=== PATIENT | female | born 1955 | race African-American/Black ===

== ENCOUNTER 2017-02-23 23:12 | Inpatient (IN) | payer MEDICARE, OTHER ==
[~2017-02-23] VITALS: Ht 158.8 cm; Wt 89.3 kg
--- NOTE | ~2017-02-23 | OR ---
Unit #: [id number] #: [id number] Patient: MILAN DAY [id number] [address] [address] [id number] I MR#: [id number] NAME: MILAN DAY ROOM: 467 Date of Procedure: 02/24/2017 Admission Date: 02/24/2017 Surgeon: Ethan Nava M.D. : 1955 Attending Physician: Ethan Nava M.D. Primary Care Physician: Rusty An M.D. OPERATIVE REPORT PREOPERATIVE DIAGNOSIS Bimalleolar equivalent fracture dislocation, right ankle. POSTOPERATIVE DIAGNOSIS Bimalleolar equivalent fracture dislocation, right ankle. PROCEDURE PERFORMED Open reduction and internal fixation of the lateral malleolus with a 6-hole one-third semitubular plate by [employer]. ANESTHESIA General. ESTIMATED BLOOD LOSS 50 mL. DESCRIPTION OF PROCEDURE The patient was brought to the operating room, given appropriate IV antibiotics, brought back to the operating room, given a general anesthetic. Tourniquet placed around the right thigh. The right leg was prepped and draped in a sterile fashion. Tourniquet was inflated to 250. A straight lateral skin incision was made. Subcutaneous dissected away. The fibula came into view. This was reduced and held in place with a clamp, and then the 6-hole one-third semitubular plate was positioned. Once this was in place, the 3.5 cortical screws were placed through the plate under C-arm control. C-arm showed appropriate reduction and good position of the hardware on AP and lateral views. The tourniquet was released. Hemostasis obtained. 20 mL of 0.5% plain Marcaine was injected into the soft tissues around the incision, and then the wound was closed using 0 Vicryl pop-off sutures in the subcu and enio in the skin. A sterile dressing applied and a posterior splint positioned. Dictated by... Gen Ramirez/rakan TD: 02/25/2017 10:40 JOB #: [id number] Unit #: [id number] #: [id number] Patient: MILAN DAY OPERATIVE REPORT Page 1 of 1 X Ethan Nava MD PROCEDURE OPERATIVE NOTE
--- NOTE | ~2017-02-23 | CR72 ---
[facility] A Service of [facility] & [facility] RADIOLOGY TEXT RESULTS PATIENT: MILAN DAY LOCATION: [place] [address]- : 55 UNIT #: [id number] AGE: [address]: Ethan Nava MD SEX: F ORDER DR: [id number] [facility] [address] [facility]. [place], [place] [address] [id number] I MR#: [id number] Acc #: [id number] NAME: MILAN DAY : 1955 SEX: F STUDY DATE/TIME: 02/24/2017 2:26 UNIT: [facility] ROOM: [facility] STUDY DESCRIPTION: CR Chest Single View Portable Attending Physician: Ethan Nava M.D. Ordering Physician: Moiz Machado M.D. Primary Care Physician: Rusty An M.D. MEDICAL IMAGING REPORT This report is preliminary unless electronic signature is present EXAM Portable chest. INDICATIONS Preoperative evaluation for ankle fracture fixation. PROCEDURE Frontal view chest. COMPARISON 06/26/2011 FINDINGS Heart size within normal limits. Lungs are clear. No visible pleural fluid or pneumothorax. IMPRESSION No active process. Dictated by... Bob Ruano M.D. THIS IS AN ELECTRONICALLY VERIFIED REPORT Bob Ruano M.D. at 02/24/2017 10:01 PM KYLE/cipriano TD: 02/24/2017 20:27 JOB #: [id number] MEDICAL IMAGING REPORT Page 1 of 1 COPY
--- NOTE | ~2017-02-23 | CR21 ---
[facility] A Service of [facility] RADIOLOGY TEXT RESULTS PATIENT: MILAN DAY LOCATION: [place] [address] : 55 UNIT #: [id number] AGE: [address]: Ethan Nava MD SEX: F ORDER DR: [id number] [facility] [address] [facility]. [place], [place] [address] [id number] I MR#: [id number] Acc #: [id number] NAME: MILAN DAY : 1955 SEX: F STUDY DATE/TIME: 02/24/2017 0:31 UNIT: [facility] ROOM: [facility] STUDY DESCRIPTION: CR Ankle Min 3 Views Rt Attending Physician: Ethan Nava M.D. Ordering Physician: Moiz Machado M.D. Primary Care Physician: Rusty An M.D. MEDICAL IMAGING REPORT This report is preliminary unless electronic signature is present EXAM Right ankle series INDICATIONS Right ankle pain after fall today. PROCEDURE 3 views of the right ankle COMPARISON None FINDINGS Complex fracture dislocation of the right ankle. There is a displaced fracture of the distal tibia. There is lateral and posterior dislocation of the ankle joint. Talus is positioned approximately 2.7 cm lateral to the distal tibia. The tibia is displaced anteriorly approximately 2.1 cm. Suspected fracture of the anterior tibia. No definite talar fracture. IMPRESSION Complex fracture dislocation of the right ankle involving the distal fibula and tibia and dislocation of the ankle joint. Dictated by... Bob Ruano M.D. THIS IS AN ELECTRONICALLY VERIFIED REPORT Bob Ruano M.D. at 02/24/2017 10:02 PM EED/to TD: 02/24/2017 19:07 JOB #: [id number] [facility] A Service of [facility] RADIOLOGY TEXT RESULTS PATIENT: MILAN DAY LOCATION: [place] [address] : [birth year] UNIT #: [id number] AGE: [address]: Ethan Nava MD SEX: F ORDER DR: MEDICAL IMAGING REPORT Page 1 of 1 COPY
--- NOTE | ~2017-02-23 | CT71 ---
[facility] A Service of [facility] RADIOLOGY TEXT RESULTS PATIENT: MILAN DAY LOCATION: [place] [address] : [birth year] UNIT #: [id number] AGE: [address]: Ethan Nava MD SEX: F ORDER DR: [id number] [facility] [address] [facility]. [place], [place] [address] [id number] I MR#: [id number] Acc #: [id number] NAME: MILAN DAY : 1955 SEX: F STUDY DATE/TIME: 02/24/2017 1:11 UNIT: [facility] ROOM: [facility] STUDY DESCRIPTION: CT Head Wo Contrast Attending Physician: Ethan Nava M.D. Ordering Physician: Moiz Machado M.D. Primary Care Physician: Rusty An M.D. MEDICAL IMAGING REPORT This report is preliminary unless electronic signature is present EXAM CT head without contrast. INDICATIONS Head pain after a fall today. PROCEDURE Unenhanced CT of the head. This CT exam was performed with one or more of the following radiation dose reduction techniques: automatic exposure control, adjustment of mA and/or kV according to patient size, and iterative reconstruction. COMPARISON None. FINDINGS No acute hemorrhage, abnormal mass effect, extraaxial fluid collection or hydrocephalus. No depressed calvarial fracture. The paranasal sinuses, mastoid air cells clear. IMPRESSION No acute intracranial findings. Dictated by... Bob Ruano M.D. THIS IS AN ELECTRONICALLY VERIFIED REPORT Bob Ruano M.D. at 02/24/2017 10:02 PM KYLE/cipriano TD: 02/24/2017 19:32 JOB #: [id number] [facility] A Service [facility] RADIOLOGY TEXT RESULTS PATIENT: MILAN DAY FRANCISCO J LOCATION: [place] [address] : [birth year] UNIT #: [id number] AGE: [address]: Ethan Nava MD SEX: F ORDER DR: MEDICAL IMAGING REPORT Page 1 of 1 COPY
--- NOTE | ~2017-02-23 | CR18 ---
[facility] A Service of [facility] & [facility] RADIOLOGY TEXT RESULTS PATIENT: MILAN DAY LOCATION: [place] [address]- : 55 UNIT #: [id number] AGE: [address]: Ethan Nava MD SEX: F ORDER DR: [id number] [facility] [address] [facility]. [place], [place] [address] [id number] I MR#: [id number] Acc #: [id number] NAME: MILAN DAY : 1955 SEX: F STUDY DATE/TIME: 02/24/2017 2:25 UNIT: [facility] ROOM: [facility] STUDY DESCRIPTION: CR Ankle 2 Views Rt Attending Physician: Ethan Nava M.D. Ordering Physician: Moiz Machado M.D. Primary Care Physician: Rusty An M.D. MEDICAL IMAGING REPORT This report is preliminary unless electronic signature is present EXAM Right ankle series. INDICATIONS Right ankle fracture dislocation, post reduction. PROCEDURE Two views of the right ankle. COMPARISON 02/24/2017 at 0031 hours. FINDINGS Interval reduction of the fracture dislocation now in much better anatomic alignment. IMPRESSION Reduction of the ankle dislocation and fractures with much better alignment than on the prior. Dictated by... Bob Ruano M.D. THIS IS AN ELECTRONICALLY VERIFIED REPORT Bob Ruano M.D. at 02/24/2017 10:01 PM KYLE/cipriano TD: 02/24/2017 20:26 JOB #: [id number] MEDICAL IMAGING REPORT Page 1 of 1 COPY
--- NOTE | ~2017-02-23 | HP ---
Unit #: [id number] #: [id number] Patient: MILAN HERNANDES [id number] [address] [place], [place] [address] [id number] I MR#: [id number] NAME: MILAN HERNANDES ROOM: 467 Age: 61 Sex: F Admission Date: 02/24/2017 : 1955 Attending Physician: Ethan Nava M.D. Primary Care Physician: Rusty An M.D. HISTORY AND PHYSICAL ADMITTING DIAGNOSIS Right ankle fracture. HISTORY OF PRESENT ILLNESS Ms. Hernandes is a 61-year-old female who fell down some stairs going out her back door in the rain early this morning. She twisted her ankle. She went to the emergency room where x-rays were taken. X-rays were positive for a distal fibular fracture with significant displacement of the mortise. She underwent a closed reduction in the emergency room as well as a splint placement. Her pain is localized to the medial and lateral malleolus. She reports swelling and throbbing of the ankle. She is unable to weight-bear at this time. PAST MEDICAL HISTORY Her past medical history is significant for hypertension. MEDICATIONS Include Plavix. SURGICAL HISTORY Significant for: 1. Knee scope. 2. Back surgery. 3. Splenectomy. 4. Hysterectomy. SOCIAL HISTORY Patient lives at home with her grandkids and her . She is a former smoker and quit years ago. She denies any alcohol use. ALLERGIES No known drug allergies. FAMILY HISTORY Insignificant. REVIEW OF SYSTEMS Ten organ systems reviewed. Patient denies any blurry vision, congestion, sore throat, shortness of breath, chest pain, abdominal pain, urinary incontinence, numbness, tingling, skin ulcers or lesions, anxiety, depression. Positive for joint pain. PHYSICAL EXAMINATION Unit #: [id number] #: [id number] Patient: MILAN HERNANDES GENERAL: In no acute distress. Alert and oriented x3. VITALS: Temp 98.1, pulse 98, respirations 19, blood pressure 127/83. HEENT: PERRLA. Nonicteric sclerae. THORAX: Trachea midline. No thyromegaly. CARDIAC: S1 and S2. No extra sounds. No murmurs. LUNGS: Clear to auscultation. No rales and no rhonchi. ABDOMEN: Nondistended and nontender. Positive bowel sounds. : Deferred. MUSCULOSKELETAL: 2+ dorsalis pedis bilateral pulses. Range of motion is deferred due to x-ray findings. NEUROLOGIC: II-XII intact. SKIN: Cool and dry. PSYCH: Good insight. Good judgement. Mood and affect are pleasant. DIAGNOSTIC STUDIES LABORATORY: On admission, white count is 11.9, hemoglobin 13.4, hematocrit 41, platelets 498. Sodium 137, potassium 4.4, chloride 103, bicarb 23, BUN 12, creatinine 0.8, glucose 118. INR is 1. IMAGING: X-rays of the right ankle were ordered and reviewed and shows distal fibula fracture with mortise displacement. ASSESSMENT Right ankle fracture. PLAN I have discussed treatment options with the patient and the patient's family who was at the bedside. I have recommended an ORIF of the right ankle to be done by Dr. Nava. Risks and benefits of the procedure was explained as well as a description of procedure in its entirety along with any complications. Patient has decided to proceed. We will go ahead and get this scheduled, get the usual preoperative lab work and testing complete, and have the patient medically cleared for surgery. Dictated by Juanjose Seo for Ethan Nava M.D. KYUNG/joel TD: 02/24/2017 09:29 JOB #: [id number] HISTORY AND PHYSICAL Page 1 of 1 X Nneka Dorantes HISTORY AND PHYSICAL
--- NOTE | ~2017-02-23 | EKG ---
PATIENT: MILAN DAY UNIT #: [id number] Ventricular Rate: 95 BPM Atrial Rate: 95 BPM P-R Interval: 182 ms QRS Duration: 64 ms Q-T Interval: 382 ms QTC Calculation(Bezet): 480 ms P Blanch: 56 degrees Calculated R Blanch: -10 degrees Calculated T Blanch: 50 degrees Diagnosis Line: Normal sinus rhythm Diagnosis Line: Possible Left atrial enlargement Diagnosis Line: Borderline ECG Diagnosis Line: Diagnosis Line: Confirmed by TRAE POLLARD MD ([id number]) on Diagnosis Line: 02/25/2017 4:58:04 PM INTERPRETING MD: SYL
--- NOTE | ~2017-02-23 | CR18 ---
[facility] A Service of [facility] & [facility] RADIOLOGY TEXT RESULTS PATIENT: MILAN DAY LOCATION: [facility] 46- : 55 UNIT #: [id number] AGE: [address]: Ethan Nava MD SEX: F ORDER DR: [id number] [place] [id number] [facility]. [place], [place] [address] [id number] I MR#: [id number] Acc #: [id number] NAME: MILAN DAY : 1955 SEX: F STUDY DATE/TIME: 02/24/2017 13:30 UNIT: [facility] ROOM: 46 STUDY DESCRIPTION: CR Ankle 2 Views Rt Attending Physician: Ethan Nava M.D. Ordering Physician: Ethan Nava M.D. Primary Care Physician: Rusty An M.D. MEDICAL IMAGING REPORT This report is preliminary unless electronic signature is present EXAM Right ankle, 2 views COMPARISON Radiographs of the right ankle dated February 24, 2017 at 02:25 a.m. and 12:31 a.m. INDICATIONS 61-year-old female. Intraoperative evaluation for open reduction internal fixation of right ankle fracture. FINDINGS A total of 2 images were obtained. Total fluoro time was 12 seconds. Intraoperative images demonstrate a lateral fracture fixation plate of the distal fibula with interlocking screws. There is no evidence of hardware complication. The ankle appears anatomically aligned. There may be minimal persistent displacement of the distal fracture of the fibula but bones are in gross anatomic alignment. IMPRESSION Post open reduction internal fixation of a distal fibular fracture. There may be persistently visible mildly displaced fracture fragment of the distal fibula only seen on lateral view. Formal postoperative radiographic evaluation is recommended. Anatomic alignment of the right ankle. Dictated by... Bala Chiu M.D. THIS IS AN ELECTRONICALLY VERIFIED REPORT Bala Chiu M.D. at 03/03/2017 8:35 PM TANYA/rnr [facility] A Service of [facility] & [facility] RADIOLOGY TEXT RESULTS PATIENT: MILAN DAY LOCATION: [place] [address] : 55 UNIT #: [id number] AGE: [address]: Ethan Nava MD SEX: F ORDER DR: TD: 02/25/2017 00:32 JOB #: [id number] MEDICAL IMAGING REPORT Page 1 of 1 COPY
--- NOTE | ~2017-02-23 | DS ---
Unit #: [id number] #: [id number] Patient: MILAN DAY [id number] [address] [place], [place] [address] [id number] I MR#: [id number] NAME: MILAN DAY ROOM: 467 Age: 61 Sex: F Admission Date: 02/24/2017 : 1955 Discharge Date: 02/25/2017 Attending Physician: Ethan Nava M.D. Primary Care Physician: Rusty An M.D. DISCHARGE SUMMARY ADMITTING DIAGNOSIS Fracture dislocation right ankle. DISCHARGE DIAGNOSIS Fracture dislocation right ankle. PROCEDURES IN THE HOSPITAL ORIF of the right ankle. HOSPITAL COURSE Patient was admitted on 02/24, taken to the operating room that day where she underwent an ORIF of the lateral malleolus of the right ankle. Postop she has done well. She has been up with physical therapy. She is comfortable on her oral pain medicine. It is felt she can be discharged home today. She is toe-touch weightbearing. She will follow up in the office in 2 weeks for staple removal. DISCHARGE MEDICATIONS Her medications at discharge are her routine home medicines plus her pain medicine. CONDITION/DISPOSITION Her condition on discharge is improved, and her disposition is to home. Dictated by... Ethan Nava M.D. KATHLEEN/italia TD: 02/26/2017 20:29 JOB #: [id number] DISCHARGE SUMMARY Page 1 of 1 X Ethan Nava MD X DISCHARGE SUMMARY
--- NOTE | ~2017-02-23 | CR253 ---
[facility] A Service of [facility] & [facility] RADIOLOGY TEXT RESULTS PATIENT: MILAN DAY LOCATION: [place] [address]- : 55 UNIT #: [id number] AGE: [address]: Ethan Nava MD SEX: F ORDER DR: [id number] [facility] [address] [facility]. [place], [place] [address] [id number] I MR#: [id number] Acc #: [id number] NAME: MILAN DAY : 1955 SEX: F STUDY DATE/TIME: 02/24/2017 0:32 UNIT: [facility] ROOM: [facility] STUDY DESCRIPTION: CR Tibia and Fibula 2 Views Rt Attending Physician: Ethan Nava M.D. Ordering Physician: Moiz Machado M.D. Primary Care Physician: Rusty An M.D. MEDICAL IMAGING REPORT This report is preliminary unless electronic signature is present EXAM Right tib-fib series INDICATIONS Right ankle and lower leg pain after fall today. PROCEDURE 2 views of the right tibia and fibula COMPARISON None FINDINGS Displaced distal fibular fracture. No additional fracture is seen along the fibular or tibial shafts. IMPRESSION Fractures of the distal fibula and probable fracture of the distal tibia. Refer to the separately dictated ankle series. No additional fracture along the shafts of the tibia or fibula. Dictated by... Bob Ruano M.D. THIS IS AN ELECTRONICALLY VERIFIED REPORT Bob Ruano M.D. at 02/24/2017 10:02 PM EED/to TD: 02/24/2017 19:08 JOB #: [id number] MEDICAL IMAGING REPORT Page 1 of 1 COPY
--- NOTE | ~2017-02-23 | CR230 ---
[facility] A Service of [facility] & [facility] RADIOLOGY TEXT RESULTS PATIENT: MILAN DAY LOCATION: [place] [address]- : 55 UNIT #: [id number] AGE: [address]: Ethan Nava MD SEX: F ORDER DR: [id number] [facility] [address] [facility]. [place], [place] [address] [id number] I MR#: [id number] Acc #: [id number] NAME: MILAN DAY : 1955 SEX: F STUDY DATE/TIME: 02/24/2017 0:27 UNIT: [facility] ROOM: [facility] STUDY DESCRIPTION: CR Shoulder Min 2 View Rt Attending Physician: Ethan Nava M.D. Ordering Physician: Moiz Machado M.D. Primary Care Physician: Rusty An M.D. MEDICAL IMAGING REPORT This report is preliminary unless electronic signature is present EXAM Right shoulder series INDICATIONS Right shoulder pain after fall today. PROCEDURE 3 views right shoulder COMPARISON None FINDINGS No fracture or dislocation IMPRESSION No acute findings Dictated by... Bob Ruano M.D. THIS IS AN ELECTRONICALLY VERIFIED REPORT Bob Ruano M.D. at 02/24/2017 10:02 PM EED/to TD: 02/24/2017 19:06 JOB #: [id number] MEDICAL IMAGING REPORT Page 1 of 1 COPY
[~2017-02-23 23:12] MED LIST: FLEXERIL PO; FLEXERIL10 M1 PO; MOTRIN20 MG/ML PO; NAPROSYN500 MG PO
[2017-02-24 03:18] LABS: BASOPHIL# 0.1 X10e3 (0-0.3); BASOPHIL% 0.7 % (0-2.5); EOSINOPHIL# 0.1 X10e3 (0-0.7); EOSINOPHIL% 0.7 % (0.0-7.0); HEMOGLOBIN 13.4 gm/dL (12.0-16.0); LYMPHOCYTE# 3.2 X10e3 (1.0-3.5); LYMPHOCYTE% 26.8 % (17.0-45.0); MEAN CELL VOLUME 91.6 FL (83-96); MEAN CORPUSCULAR HEMOGLOBIN 29.8 PG (28-34); MEAN CORPUSCULAR HGB CONC 32.6 g/dL (30-36); MEAN PLATELET VOLUME 6.8 FL (6.5-11.5); MONOCYTE# 0.7 X10e3 (0-1.0); MONOCYTE% 6.2 % (3.0-12.0); NEUTROPHIL# 7.8 X10e3 (1.5-7.1); NEUTROPHIL% 65.6 % (40-75); PLATELET COUNT 498 X10e3 (140-420); RED BLOOD COUNT 4.48 X10e (3.90-5.30); RED CELL DISTRIBUTION WIDTH 14.7 % (11.0-15.5); WHITE BLOOD COUNT 11.9 X10e3 (4.0-10.5)
[2017-02-24 03:19] LABS: DIFF IND NO
[2017-02-24 03:42] LABS: CREATININE SERUM 0.8 mg/dL (0.6-1.4); GLOM FILT RATE Estimated 92.3 mL/min (>60); POTASSIUM 4.4 mmol/L (3.5-5.1)
[2017-02-24] MEDS ORDERED: CLOPIDOGREL75 MG PO (04:44)
[2017-02-24] MEDS ORDERED: ASPIRIN81 MG PO (04:44)
[2017-02-24] MEDS ORDERED: LISINOPRIL PO (04:44)
[2017-02-24] MEDS ORDERED: FLEXERIL10 MG PO (04:45)
[2017-02-24 06:14] LABS: PROTHROMBIN TIME (PATIENT) 10.6 SECONDS (10.0-11.7)
[2017-02-25 03:50] LABS: BASOPHIL# 0.1 X10e3 (0-0.3); BASOPHIL% 0.5 % (0-2.5); EOSINOPHIL% 0.1 % (0.0-7.0); HEMATOCRIT 39.3 % (35.0-45.0); HEMOGLOBIN 12.7 gm/dL (12.0-16.0); LYMPHOCYTE# 2.6 X10e3 (1.0-3.5); LYMPHOCYTE% 15.7 % (17.0-45.0); MEAN CELL VOLUME 90.3 FL (83-96); MEAN CORPUSCULAR HEMOGLOBIN 29.2 PG (28-34); MEAN CORPUSCULAR HGB CONC 32.4 g/dL (30-36); MEAN PLATELET VOLUME 6.8 FL (6.5-11.5); MONOCYTE# 1.4 X10e3 (0-1.0); MONOCYTE% 8.5 % (3.0-12.0); NEUTROPHIL# 12.7 X10e3 (1.5-7.1); NEUTROPHIL% 75.2 % (40-75); PLATELET COUNT 481 X10e3 (140-420); RED BLOOD COUNT 4.35 X10e (3.90-5.30); RED CELL DISTRIBUTION WIDTH 14.9 % (11.0-15.5); WHITE BLOOD COUNT 16.9 X10e3 (4.0-10.5)
[2017-02-25 03:51] LABS: DIFF IND YES
[2017-02-25 04:14] LABS: PLATELET ESTIMATE INCREASED (NORMAL); RBC NORMAL YES
[2017-02-25] MEDS ORDERED: PERCOCET10 PO (13:54)
== END 2017-02-25 15:45 | disposition home or self-care (01) | DRG 494 ==
LOC: CED 23:12 → CEDOF 02-24 02:28 → CED 02-24 02:28 → CEDOF 02-24 03:55 → C4C 02-24 03:55
PROVIDERS: Emergency Medicine; Orthopaedic Surgery
PROC: 0QSJ04Z Reposition Right Fibula with Internal Fixation Device, Open Approach (ICD-10-PCS; principal; 2017-02-24 12:00)
DX: S82.841A Displaced bimalleolar fracture of right lower leg, initial encounter for closed fracture (principal); I10 Essential (primary) hypertension; W10.9XXA Fall (on) (from) unspecified stairs and steps, initial encounter; Z87.891 Personal history of nicotine dependence
CPT/HCPCS: 36415; 70450; 71010; 73030; 73590; 73600; 73610; 76000; 80048; 85025; 85610; 85730; 93005; 96374; 96375; 97116; 97161; 97530; 99152; 99285; C1713; G8978-GP; G8979-GP; G8980-GP; J0690; J1100; J1170; J2250; J2310; J2405; J3010; J3490